=== PATIENT | female | born 1990 | race Two or more races ===

== ENCOUNTER 2016-05-25 12:21 | Observation (INO) | payer MEDICAID | END 2016-05-25 14:25 | disposition home or self-care (01) | DRG 566 | LOC: LDRP 12:21 → UNDOADMOB 12:21 → LDRP 13:20 → UNDODISOB 14:25 | PROVIDERS: ADMIT Obstetrics & Gynecology; ATTEND Obstetrics & Gynecology | DX: O26.852 Spotting complicating pregnancy, second trimester (principal); Z3A.25 25 weeks gestation of pregnancy | CPT/HCPCS: 59025; 81002; G0378 ==

== ENCOUNTER 2016-08-08 10:25 | Observation (INO) | payer OTHER ==
[~2016-08-08] VITALS: Ht 170.2 cm; Wt 99.8 kg
[2016-08-08] MEDS ORDERED: TERBUTALINE SULFATE 1 MG/ML 1ML VIAL SC SCH (11:45)
== END 2016-08-08 12:15 | disposition home or self-care (01) | DRG 566 ==
LOC: LDRP 10:25
PROVIDERS: ADMIT Obstetrics & Gynecology; ATTEND Obstetrics & Gynecology
DX: O26.893 Other specified pregnancy related conditions, third trimester (principal); R10.9 Unspecified abdominal pain; Z3A.36 36 weeks gestation of pregnancy
CPT/HCPCS: 59025; 81002; 96372; G0378; J3105

== ENCOUNTER 2016-08-10 08:05 | Inpatient (IN) | payer MEDICAID, OTHER ==
[~2016-08-10] VITALS: Ht 157.5 cm; Wt 108.9 kg
[2016-08-10] VITALS (10 sets, daily range): BP systolic 99–143; BP diastolic 58–78
[2016-08-10] MEDS ORDERED: LACTATED RINGER'S 1,000 ML IV ONE (08:35)
[2016-08-10] MEDS ORDERED: PREN-153 OR (08:39)
[2016-08-10] MEDS: TERBUTALINE SULFATE 1 MG/ML 1ML VIAL SC SCH ×3 (08:45→16:40)
[2016-08-10 10:31] LABS: Basophils # (auto) 0 uL; Basophils % (auto) 0.1 % (0.0-2.0); Eosinophils # (auto) 0 uL; Eosinophils % (auto) 0.6 % (0.0-7.0); Hematocrit 34.5 % (36.0-46.0); Hemoglobin 11.8 g/dL (12.2-16.2); Lymphocytes # (auto) 1.9 uL; Lymphocytes % (auto) 26.4 % (10.0-50.0); Mean Corpuscular Hemoglobin 27.6 pg (28.0-32.0); Mean Corpuscular Hgb Conc. 34.2 g/dL (32.0-36.0); Mean Corpuscular Volume 80.6 fL (80.0-100.0); Mean Platelet Volume 8.6 fL (7.4-10.4); Monocytes # (auto) 0.5 uL; Monocytes % (auto) 6.4 % (0.0-12.0); Neutrophils # (auto) 4.8 uL; Neutrophils % (auto) 66.5 % (37.0-80.0); Platelet Count (auto) 108 10^3/uL (140-450); Red Cell Distribution Width 12.8 % (11.6-16.0); White Blood Cell 7.3 10^3/uL (4.4-10.8)
[2016-08-10 10:42] LABS: INR 0.97 (0.9-1.15); Prothrombin Time 10.6 sec (9.37-12.3)
[2016-08-10 11:38] LABS: Albumin 2.6 g/dL (3.4-5.0); BUN/Creatinine Ratio 12.1; Bilirubin, Total 0.2 mg/dL (0.2-1.0); Calcium 8.3 mg/dL (8.5-10.1); Potassium 3.5 mmol/L (3.5-5.1); Total Protein 6.6 g/dL (6.4-8.2)
[2016-08-10] MEDS ORDERED: KETOROLAC TROMETH 60MG/2ML VIAL IM ONE (12:32)
[2016-08-10] MEDS ORDERED: TETRACAINE 1% INJ 2 ML VIAL IJ ONE (12:32)
[2016-08-10] MEDS ORDERED: ceFAZolin 1GM VL ONE (12:38)
[2016-08-10] MEDS ORDERED: fentaNYL CITRATE 100 MCG/2 ML VL ONE (12:38)
[2016-08-10] MEDS ORDERED: ONDANSETRON HCL 4 MG/2 ML VIAL ONE (12:38)
[2016-08-10] MEDS ORDERED: DEXAMETHASONE SOD PHOS 10MG/1ML VIAL INJ ONE (12:38)
[2016-08-10] MEDS ORDERED: LACTATED RINGER'S 1,000 ML IV SCH ×2 (12:39→14:23)
[2016-08-10] MEDS ORDERED: LACT. RINGERS/OXYTOCIN 20UNITS 1,000 ML IV SCH (12:39)
[2016-08-10] MEDS ORDERED: PHISODERM TOP SOLN 240ML BTL TOP PRN (12:45)
[2016-08-10] MEDS ORDERED: WITCH HAZEL-GLYCERIN PAD TOP PRN (12:45)
[2016-08-10] MEDS ORDERED: DERMOPLAST 60ML BOTTLE TOP PRN (12:45)
[2016-08-10] MEDS ORDERED: MORPHINE SULF(PF) 0.5MG/ML 10ML VIAL ONE (13:02)
[2016-08-10 13:17] LABS: Urine RBC None Seen /hpf (0 - 4)
[2016-08-10 13:22] LABS: Urine Bilirubin Negative (Negative); Urine Blood Negative /uL (Negative); Urine Color Yellow (Yellow); Urine Glucose Normal (Normal); Urine Ketone Negative (Negative); Urine Nitrite Negative (Negative); Urine Squamous Epithelial Cell FEW /hpf (<5); Urine Urobilinogen Normal (Negative); Urine pH 6.5 (5.0-8.0)
[2016-08-10] MEDS ORDERED: OXYTOCIN 10 UNIT/ML 10ML VIAL ONE (13:24)
[2016-08-10] MEDS ORDERED: NALOXONE HCL 0.4 MG/ML VIAL IV PRN ×2 (14:30)
[2016-08-10] MEDS ORDERED: HYDROmorphone HCL 2 MG/ML VL IV PRN ×2 (14:30)
[2016-08-10] MEDS ORDERED: KETOROLAC TROMETH 30 MG/ML 1ML VIAL IV PRN (14:30)
[2016-08-10] MEDS ORDERED: ONDANSETRON HCL 4 MG/2 ML VIAL IV ONE (14:30)
[2016-08-10] MEDS ORDERED: ONDANSETRON HCL 4 MG/2 ML VIAL IV PRN ×2 (14:30)
[2016-08-10] MEDS ORDERED: DEXAMETHASONE SOD PHOS 10MG/1ML VIAL INJ IV PRN (14:30)
[2016-08-10] MEDS: diphenhdrAMINE HCL 50 MG/1 ML VL IV PRN ×2 (16:49→21:15)
[2016-08-10] MEDS: KETOROLAC TROMETH 30 MG/ML 1ML VIAL IV SCH ×2 (17:58→23:55)
[2016-08-10] MEDS: ceFAZolin 1GM/50ML D5W 50 ML IV SCH (22:10)
[2016-08-11] VITALS (9 sets, daily range): BP systolic 103–127; BP diastolic 55–71
[2016-08-11] MEDS: KETOROLAC TROMETH 30 MG/ML 1ML VIAL IV SCH (05:56)
[2016-08-11] MEDS: ceFAZolin 1GM/50ML D5W 50 ML IV SCH ×2 (06:00→13:38)
[2016-08-11 06:25] LABS: Basophils # (auto) 0 uL; Basophils % (auto) 0.2 % (0.0-2.0); CONDITION Y; Eosinophils # (auto) 0 uL; Hematocrit 28.2 % (36.0-46.0); Hemoglobin 9.6 g/dL (12.2-16.2); Lymphocytes # (auto) 1.4 uL; Lymphocytes % (auto) 11.9 % (10.0-50.0); Mean Corpuscular Hemoglobin 27.5 pg (28.0-32.0); Mean Corpuscular Hgb Conc. 34.1 g/dL (32.0-36.0); Mean Corpuscular Volume 80.6 fL (80.0-100.0); Mean Platelet Volume 8.5 fL (7.4-10.4); Monocytes # (auto) 0.8 uL; Monocytes % (auto) 6.6 % (0.0-12.0); Neutrophils # (auto) 9.9 uL; Neutrophils % (auto) 81.3 % (37.0-80.0); Platelet Count (auto) 180 10^3/uL (140-450); Red Cell Distribution Width 14.1 % (11.6-16.0); White Blood Cell 12.1 10^3/uL (4.4-10.8)
[2016-08-11] MEDS ORDERED: HYDROcodone-ACET 5/325MG TAB PO PRN (08:45)
[2016-08-11] MEDS: DOCUSATE SOD 100 MG CAP PO SCH ×2 (09:55→22:09)
[2016-08-11] MEDS: HYDROcodone-ACET 5/325MG TAB PO PRN ×2 (11:03→22:09)
[2016-08-11] MEDS: IBUPROFEN 800 MG TAB PO PRN (16:39)
[2016-08-12] VITALS (7 sets, daily range): BP systolic 111–121; BP diastolic 60–66
[2016-08-12] MEDS: IBUPROFEN 800 MG TAB PO PRN ×3 (01:22→20:23)
[2016-08-12] MEDS: HYDROcodone-ACET 5/325MG TAB PO PRN ×2 (06:30→16:29)
[2016-08-12] MEDS: DOCUSATE SOD 100 MG CAP PO SCH ×2 (10:00→22:27)
[2016-08-13] MEDS: HYDROcodone-ACET 5/325MG TAB PO PRN (00:06)
[2016-08-13 03:54] VITALS: BP 105/74
[2016-08-13] MEDS: IBUPROFEN 800 MG TAB PO PRN (07:48)
[2016-08-13 08:00] VITALS: BP 121/80
== END 2016-08-13 10:50 | disposition home or self-care (01) | DRG 540 ==
LOC: OBSVTOIN 08:05 → LDRP 08:05
PROVIDERS: ADMIT Specialist; ATTEND Specialist
PROC: 10D00Z1 Extraction of Products of Conception, Low, Open Approach (ICD-10-PCS; principal; 2016-08-12)
PROC: 0DNW0ZZ Release Peritoneum, Open Approach (ICD-10-PCS; 2016-08-12)
DX: O34.211 Maternal care for low transverse scar from previous cesarean delivery (principal); K66.0 Peritoneal adhesions (postprocedural) (postinfection); O99.62 Diseases of the digestive system complicating childbirth; Z37.0 Single live birth; Z3A.37 37 weeks gestation of pregnancy
CPT/HCPCS: 36415; 51702; 59025; 80053; 81001; 81002; 85025; 85610; 85730; 86850; 86900; 86901; 94760; 96361; 96366; 96375; J0690; J1100; J1885; J2405; J2590